=== PATIENT | female | born 1995 | race Caucasian/White ===

== ENCOUNTER 2021-11-20 22:37 | Emergency (ER) | payer OTHER ==
[~2021-11-20] VITALS: Ht 170.2 cm; Wt 82.1 kg
[2021-11-20 23:30] VITALS: BP_SYST 142
--- NOTE | 2021-11-20 23:30 | NUR ---
Patient to ER chair for evaluation.
[2021-11-20] MEDS ORDERED: NAPR-686 PO (23:50)
[2021-11-20] MEDS ORDERED: CLIN-142 PO (23:50)
[2021-11-21] MEDS ORDERED: IBUPROFEN 600 MG TABLET PO ONE
[2021-11-21] MEDS ORDERED: CLINDAMYCIN HCL 150 MG CAPSULE PO ONE
[2021-11-21 00:24] VITALS: BP_SYST 142
--- NOTE | 2021-11-21 00:24 | NUR ---
Patient given written and verbal discharge instructions and verbalizes understanding. ER MD discussed with patient the results and treatment provided. Patient in stable condition. ID arm band removed. Rx of clindamycin and naproxen given. Patient educated on pain management and to follow up with PMD. Pain Scale 0/10 Opportunity for questions provided and answered. Medication side effect fact sheet provided.
== END 2021-11-21 00:24 | disposition home or self-care (01) ==
LOC: SED 22:37
DX: L03.211 Cellulitis of face (principal)
CPT/HCPCS: 99283